=== PATIENT | male | born 1965 | race Two or more races ===

== ENCOUNTER 2024-04-29 08:13 | Emergency (ER) | payer BC, MEDICAID ==
[~2024-04-29] VITALS: Ht 167.6 cm; Wt 78.5 kg
[2024-04-29 08:21] VITALS: TEMP 97.2
[2024-04-29] MEDS: LIDOcaine 1% W/epiNEPHrine 1:100,000 20ml vial IJ ONE (10:36)
[2024-04-29] MEDS ORDERED: AMOX-580 PO (12:11)
[2024-04-29 12:19] VITALS: BP 122/84; PULSE 62; RESP 14; O2SAT 96
== END 2024-04-29 12:22 | disposition home or self-care (01) ==
LOC: ER 08:14
DX: L02.511 Cutaneous abscess of right hand (principal)
CPT/HCPCS: 10060; 26010; 73140; 99283; A6402; A6449

== ENCOUNTER 2024-05-10 08:37 | Emergency (ER) | payer BC ==
[~2024-05-10] VITALS: Ht 167.6 cm; Wt 78.6 kg
[~2024-05-10 08:37] MED LIST: AMOX-580 PO
[2024-05-10 09:08] VITALS: BP 159/87; PULSE 73; RESP 16; TEMP 98.5; O2SAT 95
== END 2024-05-10 09:10 | disposition home or self-care (01) ==
LOC: ER 08:38
DX: S61.211D Laceration without foreign body of left index finger without damage to nail, subsequent encounter (principal); X58.XXXD Exposure to other specified factors, subsequent encounter
CPT/HCPCS: 99281